=== PATIENT | female | born 1955 | race Asian ===

== ENCOUNTER 2023-03-22 06:28 | Emergency (ER) | payer MEDICAID ==
[~2023-03-22] VITALS: Ht 160 cm; Wt 119.3 kg
[2023-03-22 06:30] VITALS: BP 139/60; PULSE 82; RESP 19; TEMP 98.6; O2SAT 97
[2023-03-22 07:29] LABS: BLOOD GAS BASE EXCESS 1.2 mmol/L (-2.0-2.0); BLOOD GAS HCO3 26.8 mmol/L (22-26); BLOOD GAS PCO2 46.5 mmHg (35-45); BLOOD GAS PH 7.378 (7.35-7.45); BLOOD GAS PO2 60.3 mmHg (75-100)
[2023-03-22 07:30] LABS: BLOOD GAS O2 SAT% 91.1 % (92.0-98.5)
[2023-03-22 07:36] VITALS: O2SAT 97
[2023-03-22 08:02] LABS: BASOPHILS % (AUTO) 0.6 % (0.0-2.0); EOSINOPHILS # (AUTO) 0.2 K/uL (0-0.4); EOSINOPHILS % (AUTO) 4.2 % (0.0-4.0); HEMATOCRIT 36.6 % (36-48); HEMOGLOBIN 11.6 g/dL (12.0-16.0); LYMPHOCYTES # (AUTO) 0.6 K/uL (2.5-16.5); MEAN CORPUSCULAR HEMOGLOBIN 31 pg (27-31); MEAN CORPUSCULAR HGB CONC 32 g/dL (33-37); MONOCYTES # (AUTO) 0.3 K/uL (0.8-1.0); MONOCYTES % (AUTO) 6.5 % (1.7-9.3); NEUTROPHILS # (AUTO) 3.7 K/uL (1.8-7.7); NEUTROPHILS % (AUTO) 75.7 % (42.2-75.2); PLATELET COUNT (AUTO) 203 K/uL (140-450); RED BLOOD CELL COUNT(AUTO) 3.74 MIL/uL (4.20-5.40); RED CELL DISTRIBUTION WIDTH 16.5 % (11.6-13.7); WHITE BLOOD COUNT (AUTO) 4.8 K/uL (4.8-10.8)
[2023-03-22 08:23] LABS: FLU A ANTIGEN negative (NEGATIVE); FLU B ANTIGEN negative (NEGATIVE)
[2023-03-22 08:30] LABS: ALBUMIN 3.5 g/dL (3.4-5.0); ANION GAP 9.5 (8-16); CALCIUM 8.6 mg/dL (8.5-10.1); CARBON DIOXIDE 32.3 mmol/L (21-32); CREATININE 0.8 mg/dL (0.6-1.3); POTASSIUM 3.8 mmol/L (3.5-5.1); TOTAL BILIRUBIN 0.5 mg/dL (0.0-1.0); TOTAL PROTEIN, SERUM 6.9 g/dL (6.4-8.2)
== END 2023-03-22 10:34 | disposition left against medical advice (07) ==
LOC: MED 06:28
DX: R06.00 Dyspnea, unspecified (principal); E66.2 Morbid (severe) obesity with alveolar hypoventilation; Z20.822 Contact with and (suspected) exposure to COVID-19; D64.9 Anemia, unspecified; E03.9 Hypothyroidism, unspecified; Z98.890 Other specified postprocedural states; Z88.6 Allergy status to analgesic agent; Z88.8 Allergy status to other drugs, medicaments and biological substances
CPT/HCPCS: 36415; 36600; 71045; 80053; 82803; 83880; 84484; 85025; 93005; 99285

== ENCOUNTER 2023-03-24 12:06 | Emergency (ER) | payer MEDICAID ==
[~2023-03-24] VITALS: Ht 157.5 cm; Wt 83.5 kg
[2023-03-24 12:09] VITALS: BP 130/79; PULSE 81; RESP 17; TEMP 97.4; O2SAT 97
[2023-03-24 13:07] LABS: BASOPHILS % (AUTO) 0.7 % (0.0-2.0); EOSINOPHILS # (AUTO) 0.2 K/uL (0-0.4); EOSINOPHILS % (AUTO) 4.2 % (0.0-4.0); LYMPHOCYTES # (AUTO) 1.1 K/uL (2.5-16.5); LYMPHOCYTES % (AUTO) 19.9 % (20.5-51.1); MEAN CORPUSCULAR HEMOGLOBIN 31 pg (27-31); MEAN CORPUSCULAR HGB CONC 32 g/dL (33-37); MEAN CORPUSCULAR VOLUME 97.9 fL (80-94); MONOCYTES # (AUTO) 0.4 K/uL (0.8-1.0); MONOCYTES % (AUTO) 7.1 % (1.7-9.3); NEUTROPHILS # (AUTO) 3.8 K/uL (1.8-7.7); NEUTROPHILS % (AUTO) 68.1 % (42.2-75.2); PLATELET COUNT (AUTO) 244 K/uL (140-450); RED BLOOD CELL COUNT(AUTO) 3.89 MIL/uL (4.20-5.40); RED CELL DISTRIBUTION WIDTH 16.2 % (11.6-13.7); WHITE BLOOD COUNT (AUTO) 5.6 K/uL (4.8-10.8)
[2023-03-24 13:34] LABS: ANION GAP 10.3 (8-16); CALCIUM 8.9 mg/dL (8.5-10.1); CARBON DIOXIDE 33.2 mmol/L (21-32); CREATININE 0.9 mg/dL (0.6-1.3); POTASSIUM 3.5 mmol/L (3.5-5.1)
== END 2023-03-24 14:31 | disposition home or self-care (01) ==
LOC: MED 12:06
DX: J96.12 Chronic respiratory failure with hypercapnia (principal); E87.3 Alkalosis; R60.0 Localized edema; Z88.6 Allergy status to analgesic agent; Z88.8 Allergy status to other drugs, medicaments and biological substances
CPT/HCPCS: 36415; 71045; 80048; 82803; 84484; 85025; 93005; 99285

== ENCOUNTER 2024-02-03 01:15 | Emergency (ER) | payer MEDICAID, OTHER ==
[~2024-02-03] VITALS: Ht 162.6 cm; Wt 117.9 kg
[2024-02-03 01:27] VITALS: BP 103/62; PULSE 105; RESP 19; TEMP 98.3; O2SAT 95
[2024-02-03] MEDS: ALBUTEROL SULFATE/IPRATROPIU 3 ML SOL IH ONE ×2 (01:40→04:02)
[2024-02-03 01:41] VITALS: PULSE 102; RESP 18; O2SAT 93; O2SAT 94
[2024-02-03 01:50] LABS: BASOPHILS # (AUTO) 0.1 K/uL (0.00-0.22); BASOPHILS % (AUTO) 1.2 % (0.0-2.0); EOSINOPHILS # (AUTO) 0.2 K/uL (0-0.4); EOSINOPHILS % (AUTO) 2.4 % (0.0-4.0); HEMATOCRIT 39.2 % (36-48); HEMOGLOBIN 12.5 g/dL (12.0-16.0); LYMPHOCYTES % (AUTO) 11.2 % (20.5-51.1); MEAN CORPUSCULAR HEMOGLOBIN 32 pg (27-31); MEAN CORPUSCULAR HGB CONC 32 g/dL (33-37); MEAN CORPUSCULAR VOLUME 100.9 fL (80-94); MONOCYTES # (AUTO) 0.3 K/uL (0.8-1.0); MONOCYTES % (AUTO) 3.9 % (1.7-9.3); NEUTROPHILS # (AUTO) 7.2 K/uL (1.8-7.7); NEUTROPHILS % (AUTO) 81.3 % (42.2-75.2); PLATELET COUNT (AUTO) 204 K/uL (140-450); RED BLOOD CELL COUNT(AUTO) 3.88 MIL/uL (4.20-5.40); RED CELL DISTRIBUTION WIDTH 16.2 % (11.6-13.7); WHITE BLOOD COUNT (AUTO) 8.8 K/uL (4.8-10.8)
[2024-02-03 02:06] LABS: ANION GAP 6.1 (8-16); CALCIUM 8.8 mg/dL (8.5-10.1); CARBON DIOXIDE 36.1 mmol/L (21-32); POTASSIUM 4.2 mmol/L (3.5-5.1); TOTAL BILIRUBIN 0.6 mg/dL (0.0-1.0)
[2024-02-03] MEDS: methylPREDNISolone SS 125 MG/2 ML VIAL IVP ONE (03:41)
[2024-02-03] MEDS: ACETAMINOPHEN EXTRA STRENGTH 500 MG TAB PO ONE (03:41)
[2024-02-03 03:44] LABS: FLU A ANTIGEN negative (NEGATIVE); FLU B ANTIGEN NEGATIVE (NEGATIVE)
[2024-02-03 03:59] VITALS: PULSE 104; RESP 18; O2SAT 92
[2024-02-03 04:40] VITALS: BP 113/65; PULSE 79; RESP 19; TEMP 98.2; O2SAT 96
== END 2024-02-03 03:30 | disposition short-term general hospital (02) ==
LOC: MED 01:15
DX: J45.901 Unspecified asthma with (acute) exacerbation (principal); R09.02 Hypoxemia; R00.0 Tachycardia, unspecified; Z20.822 Contact with and (suspected) exposure to COVID-19; Z88.6 Allergy status to analgesic agent; Z88.8 Allergy status to other drugs, medicaments and biological substances
CPT/HCPCS: 36415; 71045; 80053; 83880; 84484; 85025; 87426; 87804; 93005; 94640; 99285; J2919; Q0092

== ENCOUNTER 2024-02-08 08:13 | Emergency (ER) | payer OTHER ==
[~2024-02-08] VITALS: Ht 162.6 cm; Wt 117.9 kg
[2024-02-08 08:16] VITALS: BP 130/80; PULSE 110; RESP 20; TEMP 98.2; O2SAT 95
[2024-02-08] MEDS: MECLIZINE 25 MG TAB PO ONE (09:04)
[2024-02-08 09:06] VITALS: PULSE 103; RESP 15; O2SAT 95; O2SAT 96
[2024-02-08] MEDS: ALBUTEROL SULFATE/IPRATROPIU 3 ML SOL IH ONE (09:06)
[2024-02-08] MEDS ORDERED: ALBU0.0912 IH (10:21)
[2024-02-08 10:35] VITALS: BP 115/54; PULSE 112; RESP 20; TEMP 98.1; O2SAT 95
== END 2024-02-08 10:35 | disposition home or self-care (01) ==
LOC: MED 08:13
DX: J98.01 Acute bronchospasm (principal); E66.2 Morbid (severe) obesity with alveolar hypoventilation; J44.9 Chronic obstructive pulmonary disease, unspecified; R03.0 Elevated blood-pressure reading, without diagnosis of hypertension; Z68.41 Body mass index [BMI] 40.0-44.9, adult; Z87.442 Personal history of urinary calculi; Z79.899 Other long term (current) drug therapy; Z88.8 Allergy status to other drugs, medicaments and biological substances
CPT/HCPCS: 94640; 99285; J8597

== ENCOUNTER 2024-02-18 10:20 | Emergency (ER) | payer OTHER ==
[~2024-02-18] VITALS: Ht 165.1 cm; Wt 99.8 kg
[~2024-02-18 10:20] MED LIST: ALBU0.0912 IH
[2024-02-18 10:26] VITALS: BP 151/73; PULSE 117; RESP 18; TEMP 98.3; O2SAT 95
[2024-02-18] MEDS: IPRATROPIUM 0.02% 0.5 MG/2.5 ML NEBU INH ONE (11:05)
[2024-02-18] MEDS: ALBUTEROL 0.083% 2.5 MG/3 ML NEBU INH ONE (11:05)
[2024-02-18 11:06] VITALS: PULSE 107; RESP 18; O2SAT 95; O2SAT 96
[2024-02-18] MEDS: predniSONE 20 MG TAB PO ONE (11:09)
[2024-02-18] MEDS ORDERED: PRED20TA5 PO (11:56)
[2024-02-18] MEDS ORDERED: PRON INH (11:56)
[2024-02-18 12:51] VITALS: BP 120/68; PULSE 72; RESP 20; TEMP 98.2; O2SAT 98
== END 2024-02-18 12:48 | disposition home or self-care (01) ==
LOC: MED 10:20
DX: J45.901 Unspecified asthma with (acute) exacerbation (principal); E66.2 Morbid (severe) obesity with alveolar hypoventilation; R03.0 Elevated blood-pressure reading, without diagnosis of hypertension; Z87.442 Personal history of urinary calculi; Z98.890 Other specified postprocedural states; Z79.899 Other long term (current) drug therapy; Z88.8 Allergy status to other drugs, medicaments and biological substances; Z88.6 Allergy status to analgesic agent
CPT/HCPCS: 71045; 93005; 94640; 99283; J7512; J7613; J7644